=== PATIENT | female | born 1975 | race Two or more races ===

== ENCOUNTER 2022-12-08 01:47 | Emergency (ER) | payer OTHER ==
[~2022-12-08] VITALS: Ht 157.5 cm; Wt 167.8 kg
[2022-12-08] MEDS ORDERED: LOSARTAN POTASS25 MG PO (02:20)
[2022-12-08] MEDS ORDERED: LIPITOR40 MG PO (02:21)
[2022-12-08] MEDS ORDERED: HYDRALAZINE HCL10 MG PO (02:21)
[2022-12-08] MEDS ORDERED: TOPROL XL25 M1 PO (02:21)
[2022-12-08] MEDS ORDERED: MONTELUKAST SOD10 MG PO (02:21)
== END 2022-12-08 08:27 | disposition home or self-care (01) ==
LOC: ER 01:47
DX: M79.602 Pain in left arm (principal)

== ENCOUNTER → 2022-12-14 | Emergency (ER) | payer OTHER ==
[~2022-12-14] VITALS: Ht 160 cm; Wt 167.8 kg
[~2022-12-14] MED LIST: HYDRALAZINE HCL10 MG PO; INSULIN GL100 UNIT/3 SUBCUTANEO; INSULIN LI100 UNIT/1 SQ; LEVSIN/SL0.125 MG SL; LIPITOR40 MG PO; LOSARTAN POTAS100 MG PO; LOSARTAN POTASS25 MG PO; MONTELUKAST SOD10 MG PO; PEPCID AC20 MG PO; TOPROL XL25 M1 PO; ZOFRAN8 MG PO
== END | disposition home or self-care (01) ==
LOC: ER 09:22
DX: R10.13 Epigastric pain (principal); Z88.8 Allergy status to other drugs, medicaments and biological substances; Z20.822 Contact with and (suspected) exposure to COVID-19
CPT/HCPCS: 36415; 74018; 96365; 99284; J3490

== ENCOUNTER 2022-12-15 12:30 | Emergency (ER) | payer OTHER ==
[~2022-12-15] VITALS: Ht 157.5 cm; Wt 167.8 kg
== END 2022-12-16 17:19 | disposition home or self-care (01) ==
LOC: ER 12:30
DX: N39.0 Urinary tract infection, site not specified (principal); E11.9 Type 2 diabetes mellitus without complications; Z79.4 Long term (current) use of insulin; Z79.84 Long term (current) use of oral hypoglycemic drugs; I10 Essential (primary) hypertension; R16.2 Hepatomegaly with splenomegaly, not elsewhere classified; N83.9 Noninflammatory disorder of ovary, fallopian tube and broad ligament, unspecified; Z88.8 Allergy status to other drugs, medicaments and biological substances
CPT/HCPCS: 36415; 71045; 74177; 76700; 93005; 96365; 96366; 99285; J1200; J1885; J2930; J3490; Q9965